=== PATIENT | female | born 1960 | race Caucasian/White ===

== ENCOUNTER 2024-08-17 07:23 | Outpatient (CLI) | payer MEDICARE | END 2024-08-17 07:24 | disposition home or self-care (01) | LOC: SCSMRI 07:23 | PROVIDERS: ATTEND Psychiatry & Neurology Neurology | DX: M48.061 Spinal stenosis, lumbar region without neurogenic claudication (principal); M51.369 Other intervertebral disc degeneration, lumbar region without mention of lumbar back pain or lower extremity pain | CPT/HCPCS: 72158 ==

== ENCOUNTER 2025-04-28 09:57 | Outpatient (CLI) | payer MEDICARE | END 2025-04-28 09:58 | disposition home or self-care (01) | LOC: BICMAMMO 09:57 | PROVIDERS: ATTEND Family Medicine | DX: Z12.31 Encounter for screening mammogram for malignant neoplasm of breast (principal); Z78.0 Asymptomatic menopausal state; M85.851 Other specified disorders of bone density and structure, right thigh; M85.852 Other specified disorders of bone density and structure, left thigh | CPT/HCPCS: 77063; 77067; 77080 ==